=== PATIENT | male | born 1950 | race African-American/Black ===

== ENCOUNTER 2017-09-16 14:50 | Inpatient (IN) | payer MEDICARE, MEDICAID ==
[~2017-09-16] VITALS: Ht 185.4 cm; Wt 73.8 kg
[2017-09-16 15:03] LABS: GLUCOSE,POINT OF CARE 217 MG/DL (70-110)
[2017-09-16 16:20] LABS: BASOPHILS % (AUTO) 0.8 % (0.0-2.0); EOSINOPHILS % (AUTO) 0.6 % (1.0-6.0); HEMATOCRIT 36.3 % (41-53); HEMOGLOBIN 11.5 g/dL (13.5-17.5); LYMPHOCYTES # (AUTO) 1.9 K/uL (1.0-4.8); LYMPHOCYTES % (AUTO) 28.2 % (22.0-44.0); MEAN CORPUSCULAR HEMOGLOBIN 21.9 pg (26.0-34.0); MEAN CORPUSCULAR HGB CONC 31.6 G/dL (31.0-37.0); MEAN CORPUSCULAR VOLUME 69 fL (80-100); MONOCYTES # (AUTO) 0.9 K/uL (0.1-1.0); MONOCYTES % (AUTO) 13.1 % (2.0-9.0); NEUTROPHILS # (AUTO) 3.9 K/uL (1.8-7.7); NEUTROPHILS % (AUTO) 57.3 % (40.0-70.0); RED BLOOD CELL COUNT(AUTO) 5.25 MIL/uL (4.50-5.90); RED CELL DISTRIBUTION WIDTH 16.5 % (11.5-14.5)
[2017-09-16 16:29] LABS: ANION GAP 11 mmol/L (8-16); CALCIUM, TOTAL 8.8 mg/dL (8.8-10.5); CARBON DIOXIDE 24 mmol/L (22-29); CHLORIDE 100 mmol/L (98-107); CREATININE 1.35 mg/dL (0.60-1.30); GLOMERULAR FILTR. RATE CALC > 60 mL/min (>60); GLUCOSE,RANDOM 187 mg/dL (70-110); POTASSIUM 4.3 mmol/L (3.5-5.1); SODIUM SERUM 135 mmol/L (136-145); UREA NITROGEN, BLOOD 21 mg/dL (7-18)
[2017-09-16 16:33] LABS: ALANINE AMINOTRANSFERASE 91 U/L (12-78); ALBUMIN 3.2 g/dL (3.4-5.0); ALKALINE PHOSPHATASE 218 U/L (46-116); ASPARTATE AMINOTRANSFERASE 109 U/L (15-37); BILIRUBIN,TOTAL 1.1 mg/dL (0.1-1.0); TOTAL PROTEIN, SERUM 7.8 g/dL (6.4-8.2)
[2017-09-16 16:55] LABS: PLATELET COUNT (AUTO) 456 K/uL (150-450)
[2017-09-16] MEDS ORDERED: FUROSEMIDE 40 MG/4 ML VIAL IVP ONE (17:15)
[2017-09-16 17:26] LABS: APPEARANCE,URINE CLEAR (CLEAR); GLUCOSE, URINE (UA) NEGATIVE (NEGATIVE); KETONES,URINE NEGATIVE (NEGATIVE); LEUKOCYTE ESTERASE ,URINE NEGATIVE (NEGATIVE); NITRATE,URINE NEGATIVE (NEGATIVE); OCCULT BLOOD,URINE NEGATIVE (NEGATIVE); PROTEIN,URINE POS 1+ (NEGATIVE)
[2017-09-16 17:42] LABS: BILIRUBIN,URINE PRELIM. POSITIVE (NEGATIVE)
[2017-09-16 17:46] LABS: BACTERIA,URINE Rare /HPF (None Seen); RBC,URINE None Seen /HPF (0-2); SQUAMOUS EPITHELIAL CELL,UR Rare /LPF (None Seen); WBC,URINE 0-2 /HPF (0-5)
[2017-09-16] MEDS ORDERED: 0.9% SODIUM CHLORIDE 10 ML SYRINGE IVP PRN (18:45)
[2017-09-16] MEDS ORDERED: ONDANSETRON HCL 4 MG/2 ML VIAL IVP PRN (18:45)
[2017-09-16] MEDS ORDERED: ACETAMINOPHEN 325 MG TABLET PO PRN (18:45)
[2017-09-16] MEDS ORDERED: IOVERSOL 350 MG/ML 100 ML VIAL ONE (18:52)
[2017-09-16] MEDS ORDERED: SODIUM CHLORIDE 0.9% 100 ML ONE (18:52)
[2017-09-16 19:57] LABS: GLUCOSE,POINT OF CARE 163 MG/DL (70-110)
[2017-09-16 20:50] VITALS: BP 132/95
[2017-09-16 23:45] VITALS: BP 139/91
[2017-09-17 04:05] VITALS: BP 142/83
[2017-09-17] MEDS ORDERED: IPRATROPIUM BROMIDE 0.5 MG/2.5 ML NEB SOLUTION NEB PRN (07:00)
[2017-09-17] MEDS ORDERED: ACETAMINOPHEN 325 MG TABLET PO PRN (07:00)
[2017-09-17] MEDS ORDERED: ZOLPIDEM TARTRATE 5 MG TABLET PO PRN (07:00)
[2017-09-17] MEDS ORDERED: ALBUTEROL SULFATE 2.5 MG/0.5 ML NEB SOLUTION NEB SCH (07:00)
[2017-09-17] MEDS ORDERED: GLUCAGON,HUMAN RECOMBINANT 1 MG VIAL IM PRN (07:00)
[2017-09-17] MEDS ORDERED: HYDROCODONE/ACETAMINOPHEN 5-325 MG TABLET PO PRN (07:00)
[2017-09-17] MEDS ORDERED: ALBUTEROL SULFATE 2.5 MG/0.5 ML NEB SOLUTION NEB PRN (07:00)
[2017-09-17] MEDS ORDERED: ONDANSETRON HCL 4 MG/2 ML VIAL IVP PRN (07:00)
[2017-09-17] MEDS ORDERED: IPRATROPIUM BROMIDE 0.5 MG/2.5 ML NEB SOLUTION NEB SCH (07:00)
[2017-09-17 07:38] VITALS: BP 123/84
[2017-09-17] MEDS: CefTRIAXone SODIUM 1 GM in DEXTROSE 5%-WATER 10 ML IV SCH (07:46)
[2017-09-17] MEDS: MetFORMIN HCL 500 MG TABLET PO SCH (08:03)
[2017-09-17] MEDS: ASPIRIN 81 MG EC TABLET PO SCH (08:03)
[2017-09-17] MEDS: HEPARIN SODIUM,PORCINE 5,000 UNITS/ML VIAL SQ SCH ×2 (08:03→16:16)
[2017-09-17] MEDS: PANTOPRAZOLE SODIUM 40 MG/VIAL IVP SCH (08:03)
[2017-09-17] MEDS: DOCUSATE SODIUM 100 MG CAPSULE PO SCH ×2 (08:04→20:22)
[2017-09-17] MEDS ORDERED: FUROSEMIDE 20 MG/2 ML VIAL IVP SCH (09:00)
[2017-09-17] MEDS: INSULIN LISPRO 100 UNITS/ML SQ PRN ×2 (11:45→18:05)
[2017-09-17 12:00] VITALS: BP 143/99
[2017-09-17] MEDS: ALBUTEROL SULFATE 2.5 MG/0.5 ML NEB SOLUTION NEB SCH ×2 (14:34→19:48)
[2017-09-17] MEDS: IPRATROPIUM BROMIDE 0.5 MG/2.5 ML NEB SOLUTION NEB SCH ×2 (14:34→19:48)
[2017-09-17] MEDS: GuaiFENesin/D-METHORPHAN [SUGAR-FREE] 200-20MG/10 ML SYRUP UDCUP PO PRN (15:36)
[2017-09-17 16:00] VITALS: BP 148/85
[2017-09-17] MEDS ORDERED: FUROSEMIDE 20 MG/2 ML VIAL IVP ONE (16:15)
[2017-09-17 19:52] VITALS: BP 122/80
[2017-09-17] MEDS: FUROSEMIDE 20 MG/2 ML VIAL IVP SCH (20:21)
[2017-09-17 20:33] LABS: GLUCOMETER DEV NAME(LOC) 5S 2Q; GLUCOSE,POINT OF CARE 144 MG/DL (70-110)
[2017-09-17] MEDS ORDERED: DEXTROSE 50%-WATER 25 GM/50 ML SYG IVP PRN (21:00)
[2017-09-17 23:45] VITALS: BP 123/83
[2017-09-18] MEDS: HEPARIN SODIUM,PORCINE 5,000 UNITS/ML VIAL SQ SCH ×3 (00:23→16:00)
[2017-09-18] MEDS: ALBUTEROL SULFATE 2.5 MG/0.5 ML NEB SOLUTION NEB SCH ×4 (02:29→19:27)
[2017-09-18] MEDS: IPRATROPIUM BROMIDE 0.5 MG/2.5 ML NEB SOLUTION NEB SCH ×4 (02:30→19:27)
[2017-09-18 03:48] VITALS: BP 125/85
[2017-09-18] MEDS: INSULIN LISPRO 100 UNITS/ML SQ PRN ×4 (06:06→20:39)
[2017-09-18] MEDS: CefTRIAXone SODIUM 1 GM in DEXTROSE 5%-WATER 10 ML IV SCH (06:08)
[2017-09-18 06:26] LABS: BASOPHILS % (AUTO) 0.5 % (0.0-2.0); EOSINOPHILS % (AUTO) 0.1 % (1.0-6.0); HEMATOCRIT 35.5 % (41-53); HEMOGLOBIN 11.6 g/dL (13.5-17.5); LYMPHOCYTES # (AUTO) 1.7 K/uL (1.0-4.8); LYMPHOCYTES % (AUTO) 15.6 % (22.0-44.0); MEAN CORPUSCULAR HEMOGLOBIN 22.4 pg (26.0-34.0); MEAN CORPUSCULAR HGB CONC 32.6 G/dL (31.0-37.0); MEAN CORPUSCULAR VOLUME 69 fL (80-100); MONOCYTES # (AUTO) 1.2 K/uL (0.1-1.0); MONOCYTES % (AUTO) 11.1 % (2.0-9.0); NEUTROPHILS % (AUTO) 72.7 % (40.0-70.0); PLATELET COUNT (AUTO) 390 K/uL (150-450); RED BLOOD CELL COUNT(AUTO) 5.18 MIL/uL (4.50-5.90)
[2017-09-18 06:41] LABS: CALCIUM, TOTAL 8.5 mg/dL (8.8-10.5); CREATININE 1.52 mg/dL (0.60-1.30); MAGNESIUM 1.9 mg/dL (1.80-2.40)
[2017-09-18] MEDS: PANTOPRAZOLE SODIUM 40 MG/VIAL IVP SCH (07:53)
[2017-09-18] MEDS: FUROSEMIDE 20 MG/2 ML VIAL IVP SCH (07:54)
[2017-09-18] MEDS: ASPIRIN 81 MG EC TABLET PO SCH (07:54)
[2017-09-18] MEDS: MetFORMIN HCL 500 MG TABLET PO SCH (07:54)
[2017-09-18] MEDS: DOCUSATE SODIUM 100 MG CAPSULE PO SCH ×2 (07:54→20:37)
[2017-09-18 08:00] VITALS: BP 113/76
[2017-09-18 08:29] LABS: PLATELET MORPHOLOGY COMMENT GIANT PLTS PRESENT
[2017-09-18 10:50] VITALS: BP 117/63
[2017-09-18 16:00] VITALS: BP 112/68
[2017-09-18 19:53] LABS: GLUCOMETER DEV NAME(LOC) 5S 2Q; GLUCOSE,POINT OF CARE 141 MG/DL (70-110)
[2017-09-18 20:23] VITALS: BP 116/70
[2017-09-18] MEDS ORDERED: FUROSEMIDE 20 MG TABLET PO SCH (21:00)
[2017-09-19] VITALS (9 sets, daily range): BP systolic 100–120; BP diastolic 63–81
[2017-09-19] MEDS: HEPARIN SODIUM,PORCINE 5,000 UNITS/ML VIAL SQ SCH ×3 (00:14→17:02)
[2017-09-19] MEDS: ALBUTEROL SULFATE 2.5 MG/0.5 ML NEB SOLUTION NEB SCH ×4 (02:57→19:45)
[2017-09-19] MEDS: IPRATROPIUM BROMIDE 0.5 MG/2.5 ML NEB SOLUTION NEB SCH ×4 (02:58→19:45)
[2017-09-19] MEDS: CefTRIAXone SODIUM 1 GM in DEXTROSE 5%-WATER 10 ML IV SCH (06:24)
[2017-09-19 07:54] LABS: GLUCOMETER DEV NAME(LOC) 5S 1M; GLUCOSE,POINT OF CARE 185 MG/DL (70-110)
[2017-09-19 07:54] LABS: GLUCOMETER DEV NAME(LOC) 5S 1M; GLUCOSE,POINT OF CARE 192 MG/DL (70-110)
[2017-09-19 07:54] LABS: GLUCOMETER DEV NAME(LOC) 5S 1M; GLUCOSE,POINT OF CARE 171 MG/DL (70-110)
[2017-09-19 07:54] LABS: GLUCOMETER DEV NAME(LOC) 5S 1M; GLUCOSE,POINT OF CARE 155 MG/DL (70-110)
[2017-09-19 07:55] LABS: GLUCOMETER DEV NAME(LOC) 5S 1M; GLUCOSE,POINT OF CARE 197 MG/DL (70-110)
[2017-09-19 08:06] LABS: INR 1.2 (0.9-1.1); PROTHROMBIN TIME 12.3 SEC (9.4-11.6)
[2017-09-19] MEDS ORDERED: MIDAZOLAM HCL 2 MG/2 ML VIAL ONE (12:06)
[2017-09-19] MEDS ORDERED: FentaNYL CITRATE-PF 100 MCG/2 ML VIAL ONE (12:06)
[2017-09-19] MEDS ORDERED: BENZOCAINE 20% 50 MCG/SPRAY 57 GM ONE (12:06)
[2017-09-19] MEDS ORDERED: SODIUM CHLORIDE 0.9% 500 ML IV ONE (12:22)
[2017-09-19] MEDS ORDERED: FentaNYL CITRATE-PF 100 MCG/2 ML VIAL IVP ONE (12:23)
[2017-09-19] MEDS ORDERED: MIDAZOLAM HCL 2 MG/2 ML VIAL IVP ONE (12:23)
[2017-09-19] MEDS ORDERED: BENZOCAINE 20% 50 MCG/SPRAY 57 GM TP ONE ×2 (12:25)
[2017-09-19] MEDS: MetFORMIN HCL 500 MG TABLET PO SCH (13:29)
[2017-09-19] MEDS: PANTOPRAZOLE SODIUM 40 MG/VIAL IVP SCH (13:29)
[2017-09-19] MEDS: DOCUSATE SODIUM 100 MG CAPSULE PO SCH ×2 (13:29→20:29)
[2017-09-19] MEDS: ASPIRIN 81 MG EC TABLET PO SCH (13:29)
[2017-09-19] MEDS: INSULIN LISPRO 100 UNITS/ML SQ PRN ×3 (13:33→20:27)
[2017-09-19] MEDS: BUMETANIDE 0.25 MG/ML 4 ML VIAL IVP SCH ×2 (13:40→20:30)
[2017-09-19] MEDS ORDERED: ASPI81 PO (15:33)
[2017-09-19] MEDS ORDERED: FURO20 PO (15:34)
[2017-09-19] MEDS ORDERED: GLIP5 PO (15:35)
[2017-09-19 18:38] LABS: GLUCOMETER DEV NAME(LOC) 5S 2Q; GLUCOSE,POINT OF CARE 123 MG/DL (70-110)
[2017-09-19 18:38] LABS: GLUCOMETER DEV NAME(LOC) 5S 2Q; GLUCOSE,POINT OF CARE 142 MG/DL (70-110)
[2017-09-19] MEDS: GuaiFENesin/D-METHORPHAN [SUGAR-FREE] 200-20MG/10 ML SYRUP UDCUP PO PRN (20:30)
[2017-09-20 00:03] VITALS: BP 118/75
[2017-09-20] MEDS: HEPARIN SODIUM,PORCINE 5,000 UNITS/ML VIAL SQ SCH ×3 (00:11→17:08)
[2017-09-20] MEDS: ALBUTEROL SULFATE 2.5 MG/0.5 ML NEB SOLUTION NEB SCH ×3 (01:23→14:32)
[2017-09-20] MEDS: IPRATROPIUM BROMIDE 0.5 MG/2.5 ML NEB SOLUTION NEB SCH ×3 (01:23→14:32)
[2017-09-20 04:00] VITALS: BP 115/66
[2017-09-20] MEDS: CefTRIAXone SODIUM 1 GM in DEXTROSE 5%-WATER 10 ML IV SCH (06:08)
[2017-09-20 07:21] VITALS: BP 105/74
[2017-09-20] MEDS: BUMETANIDE 0.25 MG/ML 4 ML VIAL IVP SCH (07:49)
[2017-09-20] MEDS: ASPIRIN 81 MG EC TABLET PO SCH (08:28)
[2017-09-20] MEDS: MetFORMIN HCL 500 MG TABLET PO SCH (08:28)
[2017-09-20] MEDS: DOCUSATE SODIUM 100 MG CAPSULE PO SCH (08:28)
[2017-09-20] MEDS: PANTOPRAZOLE SODIUM 40 MG/VIAL IVP SCH (08:31)
[2017-09-20 11:07] VITALS: BP 105/62
[2017-09-20] MEDS: INSULIN LISPRO 100 UNITS/ML SQ PRN (12:07)
[2017-09-20 12:19] LABS: GLUCOMETER DEV NAME(LOC) 5S 1M; GLUCOSE,POINT OF CARE 175 MG/DL (70-110)
[2017-09-20 12:19] LABS: GLUCOMETER DEV NAME(LOC) 5S 2Q; GLUCOSE,POINT OF CARE 149 MG/DL (70-110)
[2017-09-20 12:19] LABS: GLUCOMETER DEV NAME(LOC) 5S 1M; GLUCOSE,POINT OF CARE 216 MG/DL (70-110)
[2017-09-20 12:19] LABS: GLUCOMETER DEV NAME(LOC) 5S 1M; GLUCOSE,POINT OF CARE 119 MG/DL (70-110)
[2017-09-20 15:11] VITALS: BP 116/78
[2017-09-20] MEDS ORDERED: BUME1TAB17 PO (18:23)
[2017-09-20] MEDS ORDERED: SLOWK8 PO (18:24)
[2017-09-20] MEDS ORDERED: SULF1TAB42 PO (18:24)
[2017-09-21 00:09] LABS: GLUCOMETER DEV NAME(LOC) 5S 2Q; GLUCOSE,POINT OF CARE 133 MG/DL (70-110)
== END 2017-09-20 18:50 | disposition home or self-care (01) | DRG 291 ==
LOC: EMS 14:50 → 5S 19:30
PROVIDERS: ADMIT Internal Medicine; ATTEND Internal Medicine
PROC: B24BZZ4 Ultrasonography of Heart with Aorta, Transesophageal (ICD-10-PCS; principal; 2017-09-19)
DX: I11.0 Hypertensive heart disease with heart failure (principal); I51.1 Rupture of chordae tendineae, not elsewhere classified; L03.115 Cellulitis of right lower limb; E44.0 Moderate protein-calorie malnutrition; L03.116 Cellulitis of left lower limb; I50.43 Acute on chronic combined systolic (congestive) and diastolic (congestive) heart failure; J44.9 Chronic obstructive pulmonary disease, unspecified; F17.200 Nicotine dependence, unspecified, uncomplicated; E11.65 Type 2 diabetes mellitus with hyperglycemia; D64.9 Anemia, unspecified; E78.5 Hyperlipidemia, unspecified; F17.210 Nicotine dependence, cigarettes, uncomplicated; R74.0 Nonspecific elevation of levels of transaminase and lactic acid dehydrogenase [LDH]; Z59.0 Homelessness; Z83.3 Family history of diabetes mellitus; Z91.14 Patient's other noncompliance with medication regimen
CPT/HCPCS: 71260; 83735; 85651; 86140; 87040; 93005; 93306; 93312; 93970; 94640; 96374; 99285; C9113; J0696; J1644; J1940; J2250; J2405; J3010; J3490; J7050; J7060

== ENCOUNTER 2022-06-19 17:40 | Emergency (ER) | payer MEDICARE, OTHER ==
[~2022-06-19] VITALS: Ht 185.4 cm; Wt 77.3 kg
[~2022-06-19 17:40] MED LIST: ASPI-1450 PO; BUME1TAB34 PO; GLIP5TAB12 PO; POTA8TAB71 PO; SULF1TAB42 PO
[2022-06-19] MEDS ORDERED: GLIP5TAB11 PO (18:03)
[2022-06-19] MEDS ORDERED: INSU100I26 SQ (18:03)
[2022-06-19] MEDS ORDERED: [UNRECOGNIZED DRUG - OTHER] (18:03)
[2022-06-19] MEDS ORDERED: GABA-1181 PO (18:03)
[2022-06-19] MEDS ORDERED: NEED-113 SQ (18:03)
[2022-06-19] MEDS ORDERED: INSU100I3 SQ (18:03)
[2022-06-19] MEDS ORDERED: DULA1.5P SQ (18:03)
[2022-06-19] MEDS ORDERED: INSU100I40 SQ (18:03)
[2022-06-19] MEDS ORDERED: DAPA5TAB PO (18:03)
[2022-06-19] MEDS ORDERED: INSU3INS3 SQ (18:03)
[2022-06-19] MEDS ORDERED: GABA-529 PO (18:03)
[2022-06-19] MEDS ORDERED: INSULIN REGULAR, HUMAN 100 UNITS/ML SQ ONE (19:00)
[2022-06-19] MEDS ORDERED: MetFORMIN HCL 500 MG ER TABLET PO ONE (19:00)
[2022-06-19 19:38] LABS: EOSINOPHILS % (AUTO) 3.2 % (1.0-6.0); HEMATOCRIT 40.4 % (41-53); HEMOGLOBIN 12.6 g/dL (13.5-17.5); LYMPHOCYTES # (AUTO) 3.1 K/uL (1.0-4.8); LYMPHOCYTES % (AUTO) 39.1 % (22.0-44.0); MEAN CORPUSCULAR HEMOGLOBIN 22.3 pg (26.0-34.0); MEAN CORPUSCULAR HGB CONC 31.1 G/dL (31.0-37.0); MEAN CORPUSCULAR VOLUME 72 fL (80-100); MONOCYTES # (AUTO) 0.9 K/uL (0.1-1.0); MONOCYTES % (AUTO) 11.5 % (2.0-9.0); NEUTROPHILS # (AUTO) 3.6 K/uL (1.8-7.7); NEUTROPHILS % (AUTO) 45.2 % (40.0-70.0); PLATELET COUNT (AUTO) 309 K/uL (150-450); RED BLOOD CELL COUNT(AUTO) 5.63 MIL/uL (4.50-5.90)
[2022-06-19 19:54] LABS: ACETONE,BLOOD NEGATIVE (NEGATIVE)
[2022-06-19 19:59] LABS: ALANINE AMINOTRANSFERASE 97 U/L (12-78); ALBUMIN 4.2 g/dL (3.4-5.0); ALKALINE PHOSPHATASE 99 U/L (46-116); ANION GAP 6 mmol/L (8-16); ASPARTATE AMINOTRANSFERASE 66 U/L (15-37); BILIRUBIN,TOTAL 0.5 mg/dL (0.1-1.0); CALCIUM, TOTAL 10.2 mg/dL (8.8-10.5); CARBON DIOXIDE 31 mmol/L (22-29); CHLORIDE 95 mmol/L (98-107); CREATININE 2.04 mg/dL (0.60-1.30); GLOMERULAR FILTR. RATE CALC 39 mL/min (>60); GLUCOSE,RANDOM 337 mg/dL (70-110); POTASSIUM 4.8 mmol/L (3.5-5.1); SODIUM SERUM 132 mmol/L (136-145); TOTAL PROTEIN, SERUM 10.2 g/dL (6.4-8.2); UREA NITROGEN, BLOOD 49 mg/dL (7-18)
[2022-06-19 20:01] LABS: PLATELET MORPHOLOGY COMMENT LARGE PLTS PRESENT
[2022-06-19 20:32] VITALS: BP 111/68
== END 2022-06-20 02:14 | disposition home or self-care (01) ==
LOC: EMS 17:40
DX: E11.65 Type 2 diabetes mellitus with hyperglycemia (principal); I10 Essential (primary) hypertension; Z91.119 Patient's noncompliance with dietary regimen due to unspecified reason
CPT/HCPCS: 99284; 80053; 82009; 82962; 84484; 85025; 36415; 93005; G0480; J1815

== ENCOUNTER 2022-07-27 17:25 | Inpatient (IN) | payer MEDICARE, OTHER ==
[~2022-07-27] VITALS: Ht 185.4 cm; Wt 75.5 kg
[~2022-07-27 17:25] MED LIST changes: -ASPI-1450 PO; -BUME1TAB34 PO; +DAPA5TAB PO; +DULA1.5P SQ; +GABA-1181 PO; +GABA-529 PO; +GLIP5TAB11 PO; -GLIP5TAB12 PO; +INSU100I26 SQ; +INSU100I3 SQ; +INSU100I40 SQ; +INSU3INS3 SQ; +NEED-113 SQ; -POTA8TAB71 PO; -SULF1TAB42 PO; +[UNRECOGNIZED DRUG - OTHER]
[2022-07-27 18:10] LABS: BASOPHILS % (AUTO) 0.6 % (0.0-2.0); EOSINOPHILS % (AUTO) 0.5 % (1.0-6.0); HEMATOCRIT 41.2 % (41-53); HEMOGLOBIN 12.4 g/dL (13.5-17.5); LYMPHOCYTES # (AUTO) 2.3 K/uL (1.0-4.8); LYMPHOCYTES % (AUTO) 26.8 % (22.0-44.0); MEAN CORPUSCULAR HEMOGLOBIN 22.3 pg (26.0-34.0); MEAN CORPUSCULAR HGB CONC 30.1 G/dL (31.0-37.0); MEAN CORPUSCULAR VOLUME 74 fL (80-100); MONOCYTES # (AUTO) 0.9 K/uL (0.1-1.0); MONOCYTES % (AUTO) 11.2 % (2.0-9.0); NEUTROPHILS # (AUTO) 5.1 K/uL (1.8-7.7); NEUTROPHILS % (AUTO) 60.9 % (40.0-70.0); PLATELET COUNT (AUTO) 427 K/uL (150-450); RED BLOOD CELL COUNT(AUTO) 5.58 MIL/uL (4.50-5.90); RED CELL DISTRIBUTION WIDTH 16.7 % (11.5-14.5)
[2022-07-27] MEDS ORDERED: SODIUM CHLORIDE 0.9% 1,000 ML IV ONE (18:15)
[2022-07-27] MEDS ORDERED: ONDANSETRON HCL 4 MG/2 ML VIAL IVP ONE (18:15)
[2022-07-27 18:16] LABS: CALCIUM, TOTAL 8.6 mg/dL (8.8-10.5); CREATININE 1.97 mg/dL (0.60-1.30); POTASSIUM 4.8 mmol/L (3.5-5.1)
[2022-07-27 18:22] LABS: INR 1.5 (0.9-1.1); PROTHROMBIN TIME 15.2 SEC (9.4-11.6)
[2022-07-27 18:26] LABS: BILIRUBIN,TOTAL 1.9 mg/dL (0.1-1.0)
[2022-07-27 18:27] LABS: ALBUMIN 3.5 g/dL (3.4-5.0); TOTAL PROTEIN, SERUM 8.9 g/dL (6.4-8.2)
[2022-07-27 18:36] LABS: COVID AG,FIA SOURCE NASAL SWAB
[2022-07-27 18:41] LABS: THYROID STIMULATING HORMONE 1.95 uIU/mL (0.36-3.74)
[2022-07-27 19:00] LABS: INFLUENZA TYPE A NEGATIVE FOR TYPE A (NEGATIVE); INFLUENZA TYPE B NEGATIVE FOR TYPE B (NEGATIVE)
[2022-07-27] MEDS ORDERED: ONDANSETRON HCL 4 MG/2 ML VIAL IVP PRN (19:15)
[2022-07-27] MEDS ORDERED: DEXTROSE 50%-WATER 25 GM/50 ML SYRINGE IVP PRN (19:15)
[2022-07-27 20:02] LABS: APPEARANCE,URINE CLEAR (CLEAR); BILIRUBIN,URINE NEGATIVE (NEGATIVE); GLUCOSE, URINE (UA) NEGATIVE (NEGATIVE); KETONES,URINE NEGATIVE (NEGATIVE); LEUKOCYTE ESTERASE ,URINE NEGATIVE (NEGATIVE); NITRATE,URINE NEGATIVE (NEGATIVE); OCCULT BLOOD,URINE NEGATIVE (NEGATIVE); PH,URINE 5.5 (5.0-8.0); PROTEIN,URINE 30-70 mg/dL (NEGATIVE)
[2022-07-27 20:10] LABS: AMPHET/METH SCREEN,URINE NEGATIVE (NEGATIVE); BARBITURATE SCREEN, URINE POSITIVE (NEGATIVE); BENZODIAZEPINES SCREEN,URINE NEGATIVE (NEGATIVE); CANNABINOID SCREEN,URINE NEGATIVE (NEGATIVE); COCAINE SCREEN,URINE NEGATIVE (NEGATIVE); METHADONE SCREEN, URINE NEGATIVE (NEGATIVE); OPIATE SCREEN,URINE NEGATIVE (NEGATIVE); PHENCYCLIDINE SCREEN,URINE NEGATIVE (NEGATIVE)
[2022-07-27 20:41] LABS: LACTIC ACID 1.8 mmol/L (0.4-2.0)
[2022-07-27 20:49] LABS: ACETAMINOPHEN < 2 mcg/mL (10-30)
[2022-07-27] MEDS: FUROSEMIDE 20 MG/2 ML VIAL IVP SCH (23:26)
[2022-07-28] MEDS: ASPIRIN 81 MG CHEWABLE TABLET PO SCH (08:10)
[2022-07-28] MEDS: FUROSEMIDE 20 MG/2 ML VIAL IVP SCH (08:10)
[2022-07-28] MEDS: METOPROLOL TARTRATE 25 MG TABLET PO SCH ×2 (08:10→20:00)
[2022-07-28 08:33] LABS: BASOPHILS % (AUTO) 0.6 % (0.0-2.0); EOSINOPHILS % (AUTO) 1.1 % (1.0-6.0); HEMATOCRIT 37.5 % (41-53); HEMOGLOBIN 11.6 g/dL (13.5-17.5); LYMPHOCYTES # (AUTO) 2.5 K/uL (1.0-4.8); LYMPHOCYTES % (AUTO) 31.5 % (22.0-44.0); MEAN CORPUSCULAR HEMOGLOBIN 22.6 pg (26.0-34.0); MEAN CORPUSCULAR HGB CONC 30.9 G/dL (31.0-37.0); MEAN CORPUSCULAR VOLUME 73 fL (80-100); MONOCYTES # (AUTO) 1.2 K/uL (0.1-1.0); MONOCYTES % (AUTO) 15.4 % (2.0-9.0); NEUTROPHILS # (AUTO) 4.1 K/uL (1.8-7.7); NEUTROPHILS % (AUTO) 51.4 % (40.0-70.0); PLATELET COUNT (AUTO) 437 K/uL (150-450); RED BLOOD CELL COUNT(AUTO) 5.13 MIL/uL (4.50-5.90); RED CELL DISTRIBUTION WIDTH 17.2 % (11.5-14.5)
[2022-07-28 08:42] LABS: CALCIUM, TOTAL 8.5 mg/dL (8.8-10.5); CREATININE 2.08 mg/dL (0.60-1.30); MAGNESIUM 2.3 mg/dL (1.80-2.40); POTASSIUM 4.8 mmol/L (3.5-5.1)
[2022-07-28 08:50] LABS: PLATELET MORPHOLOGY COMMENT GIANT PLTS PRESENT
[2022-07-28] MEDS ORDERED: MEBROFENIN TC99M/MCL ISOTOPE 1 EA INJ INJ ONE (09:40)
[2022-07-28 11:01] LABS: GLUCOMETER DEV NAME(LOC) ER.6; GLUCOSE,POINT OF CARE 119 MG/DL (70-110)
[2022-07-28 11:17] VITALS: BP 111/74
[2022-07-28 11:46] LABS: GLUCOMETER DEV NAME(LOC) 5S.1B; GLUCOSE,POINT OF CARE 116 MG/DL (70-110)
[2022-07-28 15:38] VITALS: BP 108/76
[2022-07-28 19:35] VITALS: BP 127/80
[2022-07-28 20:06] LABS: CALCIUM, TOTAL 8.9 mg/dL (8.8-10.5); CREATININE 2.29 mg/dL (0.60-1.30); POTASSIUM 4.9 mmol/L (3.5-5.1)
[2022-07-28 20:11] LABS: ALBUMIN 3.4 g/dL (3.4-5.0); BILIRUBIN,TOTAL 1.4 mg/dL (0.1-1.0); TOTAL PROTEIN, SERUM 8.6 g/dL (6.4-8.2)
[2022-07-28 20:21] LABS: GLUCOMETER DEV NAME(LOC) 5N.1C; GLUCOSE,POINT OF CARE 107 MG/DL (70-110)
[2022-07-28 20:21] LABS: GLUCOMETER DEV NAME(LOC) 5N.1C; GLUCOSE,POINT OF CARE 107 MG/DL (70-110)
[2022-07-28] MEDS ORDERED: MORPHINE SULFATE 2 MG/ML SYRINGE IVP ONE (20:45)
[2022-07-28 23:37] VITALS: BP 131/63
[2022-07-29 04:52] LABS: CREATININE,URINE RANDOM 118.9 mg/dL (30.0-125.0)
[2022-07-29 05:09] VITALS: BP 111/75
[2022-07-29 06:21] LABS: GLUCOMETER DEV NAME(LOC) 5N.2C; GLUCOSE,POINT OF CARE 120 MG/DL (70-110)
[2022-07-29 07:29] VITALS: BP 116/76
[2022-07-29] MEDS: ASPIRIN 81 MG CHEWABLE TABLET PO SCH (08:51)
[2022-07-29] MEDS: FUROSEMIDE 20 MG/2 ML VIAL IVP SCH (08:51)
[2022-07-29] MEDS: METOPROLOL TARTRATE 25 MG TABLET PO SCH ×2 (08:51→21:10)
[2022-07-29 11:51] VITALS: BP 105/50
[2022-07-29 15:30] LABS: BASOPHILS % (AUTO) 1.1 % (0.0-2.0); EOSINOPHILS % (AUTO) 1.6 % (1.0-6.0); HEMATOCRIT 38.6 % (41-53); HEMOGLOBIN 11.6 g/dL (13.5-17.5); LYMPHOCYTES # (AUTO) 1.5 K/uL (1.0-4.8); LYMPHOCYTES % (AUTO) 27.6 % (22.0-44.0); MEAN CORPUSCULAR HEMOGLOBIN 22.1 pg (26.0-34.0); MEAN CORPUSCULAR VOLUME 74 fL (80-100); MONOCYTES # (AUTO) 0.9 K/uL (0.1-1.0); MONOCYTES % (AUTO) 17.1 % (2.0-9.0); NEUTROPHILS # (AUTO) 2.8 K/uL (1.8-7.7); NEUTROPHILS % (AUTO) 52.6 % (40.0-70.0); PLATELET COUNT (AUTO) 438 K/uL (150-450); RED BLOOD CELL COUNT(AUTO) 5.23 MIL/uL (4.50-5.90)
[2022-07-29 15:41] LABS: CALCIUM, TOTAL 8.5 mg/dL (8.8-10.5); CREATININE 2.36 mg/dL (0.60-1.30); POTASSIUM 4.8 mmol/L (3.5-5.1)
[2022-07-29 15:47] LABS: ALBUMIN 3.1 g/dL (3.4-5.0); BILIRUBIN,TOTAL 1.4 mg/dL (0.1-1.0); TOTAL PROTEIN, SERUM 7.9 g/dL (6.4-8.2)
[2022-07-29 16:00] VITALS: BP 121/51
[2022-07-29 17:26] LABS: GLUCOMETER DEV NAME(LOC) 5N.2C; GLUCOSE,POINT OF CARE 135 MG/DL (70-110)
[2022-07-29 19:42] VITALS: BP 117/81
[2022-07-29 20:31] LABS: GLUCOMETER DEV NAME(LOC) 5N.1C; GLUCOSE,POINT OF CARE 118 MG/DL (70-110)
[2022-07-29] MEDS: AMOX TR/POT CLAV 875 MG/125 MG TABLET PO SCH (21:10)
[2022-07-29 23:53] VITALS: BP 112/73
[2022-07-30 05:25] VITALS: BP 117/83
[2022-07-30 06:01] LABS: GLUCOMETER DEV NAME(LOC) 5S.1B; GLUCOSE,POINT OF CARE 140 MG/DL (70-110)
[2022-07-30] MEDS: INSULIN LISPRO 100 UNITS/ML SQ PRN ×2 (06:26→17:41)
[2022-07-30 07:01] LABS: GLUCOMETER DEV NAME(LOC) 5S.1B; GLUCOSE,POINT OF CARE 161 MG/DL (70-110)
[2022-07-30 07:56] VITALS: BP 140/78
[2022-07-30] MEDS: ASPIRIN 81 MG CHEWABLE TABLET PO SCH (08:40)
[2022-07-30] MEDS: FUROSEMIDE 20 MG/2 ML VIAL IVP SCH (08:40)
[2022-07-30] MEDS: AMOX TR/POT CLAV 875 MG/125 MG TABLET PO SCH ×2 (08:40→20:11)
[2022-07-30] MEDS: METOPROLOL TARTRATE 25 MG TABLET PO SCH ×2 (08:41→20:11)
[2022-07-30 11:54] VITALS: BP 103/74
[2022-07-30 15:53] VITALS: BP 124/82
[2022-07-30 19:38] VITALS: BP 115/88
[2022-07-30 20:15] LABS: GLUCOMETER DEV NAME(LOC) 5S.1B; GLUCOSE,POINT OF CARE 153 MG/DL (70-110)
[2022-07-30 20:15] LABS: GLUCOMETER DEV NAME(LOC) 5S.1B; GLUCOSE,POINT OF CARE 139 MG/DL (70-110)
[2022-07-30 22:56] LABS: GLUCOMETER DEV NAME(LOC) 5S.2C; GLUCOSE,POINT OF CARE 91 MG/DL (70-110)
[2022-07-31] VITALS (7 sets, daily range): BP systolic 97–130; BP diastolic 55–94
[2022-07-31 08:13] LABS: CALCIUM, TOTAL 8.9 mg/dL (8.8-10.5); CREATININE 2.4 mg/dL (0.60-1.30); PHOSPHORUS 4.2 mg/dL (2.5-4.9); POTASSIUM 5.7 mmol/L (3.5-5.1)
[2022-07-31 08:14] LABS: MAGNESIUM 2.5 mg/dL (1.80-2.40)
[2022-07-31 08:26] LABS: GLUCOMETER DEV NAME(LOC) 5N.2C; GLUCOSE,POINT OF CARE 90 MG/DL (70-110)
[2022-07-31] MEDS: AMOX TR/POT CLAV 875 MG/125 MG TABLET PO SCH ×2 (08:40→20:25)
[2022-07-31] MEDS: ASPIRIN 81 MG CHEWABLE TABLET PO SCH (08:41)
[2022-07-31] MEDS: FUROSEMIDE 20 MG/2 ML VIAL IVP SCH (08:41)
[2022-07-31] MEDS: METOPROLOL TARTRATE 25 MG TABLET PO SCH ×2 (08:41→20:25)
[2022-07-31] MEDS ORDERED: LOPERAMIDE HCL 2 MG CAPSULE PO PRN (11:15)
[2022-07-31] MEDS: INSULIN LISPRO 100 UNITS/ML SQ PRN (11:47)
[2022-07-31] MEDS ORDERED: ONDANSETRON HCL 4 MG/2 ML VIAL IVP PRN (12:30)
[2022-07-31] MEDS ORDERED: IPRATROPIUM BROMIDE 0.5 MG/2.5 ML NEB SOLUTION NEB PRN (12:30)
[2022-07-31] MEDS ORDERED: ALBUTEROL SULFATE 2.5 MG/0.5 ML NEB SOLUTION NEB PRN (12:30)
[2022-07-31] MEDS ORDERED: OxyCODONE HCL/ACETAMINOPHEN 5-325 MG TABLET PO PRN (12:30)
[2022-07-31] MEDS ORDERED: MORPHINE SULFATE 2 MG/ML SYRINGE IVP PRN (12:30)
[2022-07-31] MEDS ORDERED: BISACODYL 10 MG RECTAL RECTAL SUPPOSITORY PR PRN (12:30)
[2022-07-31] MEDS ORDERED: ACETAMINOPHEN 325 MG TABLET PO PRN (12:30)
[2022-07-31] MEDS ORDERED: ZOLPIDEM TARTRATE 5 MG TABLET PO PRN (12:30)
[2022-07-31] MEDS ORDERED: MAGNESIUM HYDROXIDE SUSPENSION 30 ML UDCUP PO PRN (12:30)
[2022-07-31] MEDS ORDERED: SODIUM ZIRCONIUM CYCLOSILICATE 5 GM POWDER PACKET PO ONE (13:45)
[2022-07-31 14:19] LABS: BASOPHILS % (AUTO) 0.7 % (0.0-2.0); EOSINOPHILS % (AUTO) 0.5 % (1.0-6.0); HEMOGLOBIN 12.1 g/dL (13.5-17.5); LYMPHOCYTES # (AUTO) 1.5 K/uL (1.0-4.8); LYMPHOCYTES % (AUTO) 20.9 % (22.0-44.0); MEAN CORPUSCULAR HEMOGLOBIN 22.6 pg (26.0-34.0); MEAN CORPUSCULAR HGB CONC 30.9 G/dL (31.0-37.0); MEAN CORPUSCULAR VOLUME 73 fL (80-100); NEUTROPHILS # (AUTO) 4.6 K/uL (1.8-7.7); NEUTROPHILS % (AUTO) 63.9 % (40.0-70.0); PLATELET COUNT (AUTO) 402 K/uL (150-450); RED BLOOD CELL COUNT(AUTO) 5.34 MIL/uL (4.50-5.90); RED CELL DISTRIBUTION WIDTH 16.4 % (11.5-14.5)
[2022-07-31 15:21] LABS: POTASSIUM 5.8 mmol/L (3.5-5.1)
[2022-07-31 15:22] LABS: CALCIUM, TOTAL 8.8 mg/dL (8.8-10.5); CREATININE 2.23 mg/dL (0.60-1.30)
[2022-07-31] MEDS: HEPARIN SODIUM,PORCINE 5,000 UNITS/ML VIAL SQ SCH ×2 (15:43→23:55)
[2022-07-31 17:59] LABS: % IRON SATURATION 6.9 % (30-44)
[2022-07-31 18:12] LABS: GLUCOMETER DEV NAME(LOC) 5S.2C; GLUCOSE,POINT OF CARE 162 MG/DL (70-110)
[2022-07-31 18:25] LABS: COLLECTION TIME,URINE 24 HR
[2022-07-31 18:26] LABS: TPROTEIN TIMED,URINE 29 mg/dL; TPROTEIN URINE, 24HRS COLL 319 mg/24Hr (0-165)
[2022-07-31 18:26] LABS: BILIRUBIN,TOTAL 1.9 mg/dL (0.1-1.0)
[2022-07-31 18:27] LABS: ALBUMIN 3.2 g/dL (3.4-5.0); TOTAL PROTEIN, SERUM 7.8 g/dL (6.4-8.2)
[2022-07-31 18:28] LABS: CREATININE,SERUM FOR CRCL 2.23 mg/dL (0.60-1.30); CREATININE,URINE 82.9 mg/dL (30.0-125.0)
[2022-07-31 20:06] LABS: HEPATITIS C AB (EIA) Reactive (Non Reactive); HEPATITIS C RT-PCR,QNT 4190000 IU/mL
[2022-08-01 01:51] LABS: GLUCOMETER DEV NAME(LOC) 5N.1C; GLUCOSE,POINT OF CARE 119 MG/DL (70-110)
[2022-08-01 01:51] LABS: GLUCOMETER DEV NAME(LOC) 5S.2C; GLUCOSE,POINT OF CARE 108 MG/DL (70-110)
[2022-08-01 05:21] VITALS: BP 109/83
[2022-08-01 07:55] VITALS: BP 131/85
[2022-08-01 08:02] LABS: CALCIUM, TOTAL 9.1 mg/dL (8.8-10.5); CREATININE 2.29 mg/dL (0.60-1.30); MAGNESIUM 2.7 mg/dL (1.80-2.40); PHOSPHORUS 4.5 mg/dL (2.5-4.9)
[2022-08-01 08:24] LABS: BASOPHILS % (AUTO) 0.7 % (0.0-2.0); EOSINOPHILS % (AUTO) 0.4 % (1.0-6.0); HEMATOCRIT 41.8 % (41-53); HEMOGLOBIN 12.5 g/dL (13.5-17.5); LYMPHOCYTES # (AUTO) 1.9 K/uL (1.0-4.8); LYMPHOCYTES % (AUTO) 28.9 % (22.0-44.0); MEAN CORPUSCULAR VOLUME 73 fL (80-100); MONOCYTES # (AUTO) 1.1 K/uL (0.1-1.0); MONOCYTES % (AUTO) 17.4 % (2.0-9.0); NEUTROPHILS # (AUTO) 3.4 K/uL (1.8-7.7); NEUTROPHILS % (AUTO) 52.6 % (40.0-70.0); PLATELET COUNT (AUTO) 468 K/uL (150-450); RED CELL DISTRIBUTION WIDTH 16.8 % (11.5-14.5)
[2022-08-01] MEDS: ASPIRIN 81 MG CHEWABLE TABLET PO SCH (08:35)
[2022-08-01] MEDS: PANTOPRAZOLE SODIUM 40 MG/VIAL IVP SCH (08:35)
[2022-08-01] MEDS: HEPARIN SODIUM,PORCINE 5,000 UNITS/ML VIAL SQ SCH ×3 (08:35→23:59)
[2022-08-01] MEDS: FUROSEMIDE 20 MG TABLET PO SCH (08:35)
[2022-08-01] MEDS: AMOX TR/POT CLAV 875 MG/125 MG TABLET PO SCH ×2 (08:36→20:29)
[2022-08-01] MEDS: METOPROLOL TARTRATE 25 MG TABLET PO SCH ×2 (08:36→20:30)
[2022-08-01] MEDS ORDERED: FUROSEMIDE 20 MG TABLET PO SCH (09:00)
[2022-08-01 10:16] LABS: GLUCOMETER DEV NAME(LOC) 5S.1B; GLUCOSE,POINT OF CARE 142 MG/DL (70-110)
[2022-08-01 12:04] VITALS: BP 114/71
[2022-08-01 14:01] LABS: GLUCOMETER DEV NAME(LOC) 5S.1B; GLUCOSE,POINT OF CARE 113 MG/DL (70-110)
[2022-08-01 14:59] VITALS: BP 117/73
[2022-08-01] MEDS: INSULIN LISPRO 100 UNITS/ML SQ PRN ×2 (17:48→20:35)
[2022-08-01 19:50] LABS: GLUCOMETER DEV NAME(LOC) 5N.2C; GLUCOSE,POINT OF CARE 159 MG/DL (70-110)
[2022-08-01 20:26] LABS: GLUCOMETER DEV NAME(LOC) 5N.2C; GLUCOSE,POINT OF CARE 218 MG/DL (70-110)
[2022-08-01 21:30] VITALS: BP 103/76
[2022-08-02 00:39] VITALS: BP 113/65
[2022-08-02 05:25] VITALS: BP 122/61
[2022-08-02 05:36] LABS: GLUCOMETER DEV NAME(LOC) 5S.2C; GLUCOSE,POINT OF CARE 131 MG/DL (70-110)
[2022-08-02 06:57] LABS: CALCIUM, TOTAL 8.7 mg/dL (8.8-10.5); CREATININE 2.21 mg/dL (0.60-1.30); MAGNESIUM 2.6 mg/dL (1.80-2.40)
[2022-08-02 08:22] VITALS: BP 130/93
[2022-08-02] MEDS: HEPARIN SODIUM,PORCINE 5,000 UNITS/ML VIAL SQ SCH ×3 (08:36→23:21)
[2022-08-02] MEDS: AMOX TR/POT CLAV 875 MG/125 MG TABLET PO SCH ×2 (08:37→20:08)
[2022-08-02] MEDS: ASPIRIN 81 MG CHEWABLE TABLET PO SCH (08:37)
[2022-08-02] MEDS: FUROSEMIDE 20 MG TABLET PO SCH (08:37)
[2022-08-02] MEDS: METOPROLOL TARTRATE 25 MG TABLET PO SCH ×2 (08:37→20:08)
[2022-08-02] MEDS: PANTOPRAZOLE SODIUM 40 MG/VIAL IVP SCH (08:37)
[2022-08-02] MEDS: INSULIN LISPRO 100 UNITS/ML SQ PRN ×3 (11:55→23:18)
[2022-08-02 11:59] VITALS: BP 102/68
[2022-08-02] MEDS ORDERED: TAMS-13 PO ×2 (16:08→16:14)
[2022-08-02] MEDS ORDERED: ASPI-1444 PO (16:11)
[2022-08-02] MEDS ORDERED: LISI2.5T13 PO (16:12)
[2022-08-02] MEDS ORDERED: AMOX1TAB16 PO (16:14)
[2022-08-02] MEDS ORDERED: METO25 PO (16:14)
[2022-08-02] MEDS ORDERED: GLIP5TAB11 PO (16:14)
[2022-08-02] MEDS ORDERED: FURO20 PO (16:14)
[2022-08-02] MEDS ORDERED: DULA1.5P SQ (16:14)
[2022-08-02] MEDS ORDERED: ASPI81 PO (16:14)
[2022-08-02 16:17] VITALS: BP 109/82
[2022-08-02] MEDS ORDERED: LOPERAMIDE HCL 2 MG CAPSULE PO ONE (19:30)
[2022-08-02 20:53] VITALS: BP 115/69
[2022-08-02 22:01] LABS: GLUCOMETER DEV NAME(LOC) 5N.2C; GLUCOSE,POINT OF CARE 190 MG/DL (70-110)
[2022-08-03 00:46] LABS: GLUCOMETER DEV NAME(LOC) 5N.2C; GLUCOSE,POINT OF CARE 204 MG/DL (70-110)
[2022-08-03 00:51] LABS: GLUCOMETER DEV NAME(LOC) 5N.1C; GLUCOSE,POINT OF CARE 155 MG/DL (70-110)
[2022-08-03] MEDS: INSULIN LISPRO 100 UNITS/ML SQ PRN ×2 (06:15→12:21)
[2022-08-03 07:45] VITALS: BP 123/81
[2022-08-03] MEDS: ASPIRIN 81 MG CHEWABLE TABLET PO SCH (08:20)
[2022-08-03] MEDS: METOPROLOL TARTRATE 25 MG TABLET PO SCH (08:21)
[2022-08-03] MEDS: FUROSEMIDE 20 MG TABLET PO SCH (08:21)
[2022-08-03] MEDS: HEPARIN SODIUM,PORCINE 5,000 UNITS/ML VIAL SQ SCH (08:21)
[2022-08-03] MEDS: PANTOPRAZOLE SODIUM 40 MG/VIAL IVP SCH (08:22)
[2022-08-03] MEDS ORDERED: AMOX TR/POT CLAV 500 MG/125 MG TABLET PO SCH (09:00)
[2022-08-03 11:23] VITALS: BP 112/63
[2022-08-03 16:06] LABS: GLUCOMETER DEV NAME(LOC) 5S.1B; GLUCOSE,POINT OF CARE 169 MG/DL (70-110)
[2022-08-04 03:17] LABS: GLUCOMETER DEV NAME(LOC) 5S.2C; GLUCOSE,POINT OF CARE 235 MG/DL (70-110)
== END 2022-08-03 15:33 | disposition home health service (06) | DRG 441 ==
LOC: EMS 17:28 → 5S 07-28 09:48
PROVIDERS: ADMIT Internal Medicine; ATTEND Internal Medicine
DX: K72.00 Acute and subacute hepatic failure without coma (principal); I50.23 Acute on chronic systolic (congestive) heart failure; K81.0 Acute cholecystitis; I13.0 Hypertensive heart and chronic kidney disease with heart failure and stage 1 through stage 4 chronic kidney disease, or unspecified chronic kidney disease; N17.9 Acute kidney failure, unspecified; I47.20 Ventricular tachycardia, unspecified; E87.1 Hypo-osmolality and hyponatremia; J98.11 Atelectasis; I42.9 Cardiomyopathy, unspecified; K72.10 Chronic hepatic failure without coma; Z20.822 Contact with and (suspected) exposure to COVID-19; B18.2 Chronic viral hepatitis C; I48.91 Unspecified atrial fibrillation; I34.0 Nonrheumatic mitral (valve) insufficiency; R79.89 Other specified abnormal findings of blood chemistry; N18.32 Chronic kidney disease, stage 3b; E78.5 Hyperlipidemia, unspecified; F17.210 Nicotine dependence, cigarettes, uncomplicated; E11.22 Type 2 diabetes mellitus with diabetic chronic kidney disease; E87.5 Hyperkalemia; Z79.4 Long term (current) use of insulin; Z79.899 Other long term (current) drug therapy; Z79.84 Long term (current) use of oral hypoglycemic drugs; Z90.5 Acquired absence of kidney; Z83.3 Family history of diabetes mellitus
CPT/HCPCS: 71045; 74018; 76700; 76770; 78226; 80048; 80053; 80074; 80307; 81003; 81050; 82150; 82550; 82570; 82575; 82962; 83036; 83540; 83550; 83605; 83690; 83735; 83880; 84100; 84156; 84300; 84443; 84484; 85025; 85610; 85730; 87522; 87804; 93005; 93306; 99291; A9537; C9113; G0481; J1644; J1940; J2270; J2405; Q9967; 36415-L1; 36415-TC; G0480